=== PATIENT | female | born 1945 | race Two or more races ===

== ENCOUNTER 2024-11-07 07:39 | Day surgery (SDC) | payer OTHER ==
[~2024-11-07 07:39] MED LIST: ALEVE220 M1 PO; ATORVASTATIN CA10 MG PO; PLAVIX75 MG PO
== END 2024-11-07 15:35 | disposition home or self-care (01) ==
LOC: AMB-ENDOS 07:39
PROVIDERS: ATTEND Colon & Rectal Surgery
DX: K62.5 Hemorrhage of anus and rectum (principal); D12.5 Benign neoplasm of sigmoid colon; R19.4 Change in bowel habit; K57.30 Diverticulosis of large intestine without perforation or abscess without bleeding

== ENCOUNTER 2025-05-24 08:00 | Day surgery (SDC) | payer OTHER ==
[2025-05-24] MEDS ORDERED: FLUMAZENIL 0.5 MG/5 ML ML IV STA (11:24)
[2025-05-24] MEDS ORDERED: NALOXONE HCL 0.4 MG/ML AMPUL IV STA (11:24)
[2025-05-24] MEDS ORDERED: ONDANSETRON HCL 2 MG/ML VIAL IV ONE (11:30)
[2025-05-24] MEDS ORDERED: DIPHENHYDRAMINE HCL 50 MG/ML VIAL 1ML IV ONE (11:30)
[2025-05-24] MEDS ORDERED: MIDAZOLAM HCL 2 MG/2 ML VIAL IV ONE (11:30)
[2025-05-24] MEDS ORDERED: fentaNYL CITRATE 50 MCG/ML AMPUL IV PUSH ONE (11:30)
== END 2025-05-24 12:35 | disposition home or self-care (01) ==
LOC: AMB-ENDOS 08:00
PROVIDERS: ATTEND Colon & Rectal Surgery
DX: D12.0 Benign neoplasm of cecum (principal); D12.2 Benign neoplasm of ascending colon; K62.1 Rectal polyp; K63.5 Polyp of colon; K57.30 Diverticulosis of large intestine without perforation or abscess without bleeding